=== PATIENT | male | born 1970 | race Hispanic/Latino ===

== ENCOUNTER 2018-05-31 14:39 | Emergency (ER) | payer BC ==
[~2018-05-31 14:39] MED LIST: FLUCONAZOLE100 MG PO; LISINOPRIL10 MG; LOVASTATIN20 MG PO; METFORMIN500 MG PO; NO HOME MEDS
[2018-05-31 16:41] LABS: HEMATOCRIT 48.9 % (39.0-50.0); HEMOGLOBIN 16.8 g/dl (14.0-18.0); IMMATURE GRANULOCYTES 0.9 % (0.0-5.0); MEAN CELL VOLUME 86.2 fL CALC (80.0-100.0); MEAN CORPUSCULAR HGB 29.6 pG CALC (26.0-32.0); MEAN CORPUSCULAR HGB CONC 34.4 g/L CALC (32.0-36.0); NEUT# 3.16 thou/uL (1.82-7.42); RED BLOOD COUNT 5.67 mill/uL (4.70-6.10); RED CELL DISTRI WIDTH 12.9 % (11.5-15.5)
[2018-05-31 16:58] LABS: ALBUMIN 4.2 g/dL (3.2-5.0); ALKALINE PHOSPHATASE 133 u/l (38-126); ANION GAP 16 (6-22 (CALC)); BILIRUBIN, TOTAL 0.6 mg/dL (0.0-1.4); BUN 18 mg/dL (9-20); BUN/CREATININE RATIO 17 (12-20 (CALC)); CARBON DIOXIDE 23 mmol/l (22-30); CHLORIDE 105 mmol/l (95-108); CREATININE 1.1 mg/dL (0.7-1.3); GFR > 60 ML/MIN (>=60 (CALC)); GFR FOR AFR.AMER. > 60 ML/MIN (>=60 (CALC)); POTASSIUM 4.2 mmol/l (3.5-5.1); SGOT/AST 44 u/l (17-59); SODIUM 140 mmol/l (137-146); TOTAL PROTEIN 7.2 g/dL (6.3-8.2)
[2018-05-31] MEDS ORDERED: METFORMIN1000 MG PO (17:22)
[2018-05-31] MEDS ORDERED: JANUVIA100 MG PO (17:22)
[2018-05-31] MEDS ORDERED: LISINOP/HCTZ1 TAB PO (17:22)
[2018-05-31] MEDS ORDERED: GLIPIZIDE10 M2 PO (17:22)
[2018-05-31 18:08] VITALS: BP 133/94
== END 2018-05-31 18:08 | disposition home or self-care (01) | DRG 639 ==
LOC: ED 14:39
PROVIDERS: Emergency Medicine
DX: E11.65 Type 2 diabetes mellitus with hyperglycemia (principal); T38.3X6A Underdosing of insulin and oral hypoglycemic [antidiabetic] drugs, initial encounter; Z79.84 Long term (current) use of oral hypoglycemic drugs